=== PATIENT | male | born 1975 | race Hispanic/Latino ===

== ENCOUNTER 2018-11-05 16:23 | Emergency (ER) | payer BC, OTHER ==
[2018-11-05] MEDS ORDERED: IOHEXOL-350 75 ML VIAL IV ONE (17:09)
[2018-11-05 17:16] LABS: CREATININE 0.9 mg/dL (0.5-1.5); POTASSIUM 3.2 mmol/L (3.5-5.1)
[2018-11-05 17:19] LABS: BASOPHILS % (AUTO) 0.6 % (0.0-5.0); EOSINOPHILS % (AUTO) 0.6 % (0.0-8.0); LYMPHOCYTES % (AUTO) 23.6 % (21.0-51.0); MEAN CORPUSCULAR HEMOGLOBIN 31.6 pg (27.0-33.0); MEAN CORPUSCULAR HGB CONC 34.1 g/dL (32.0-36.0); MEAN CORPUSCULAR VOLUME 92.8 fL (79-99); MONOCYTES % (AUTO) 7.9 % (3.0-13.0); NEUTROPHILS % (AUTO) 67.3 % (40.0-77.0); PLATELET COUNT (AUTO) 376 K/uL (130-400); RED BLOOD CELL COUNT(AUTO) 4.95 MIL/uL (4.50-6.20); RED CELL DISTRIBUTION WIDTH 13.3 % (11.0-15.5); WHITE BLOOD COUNT (AUTO) 11.6 K/uL (4.8-10.8)
[2018-11-05 17:20] LABS: ALBUMIN 4.2 g/dL (3.5-5.0); BILIRUBIN,TOTAL 1.4 mg/dL (0.2-1.0); TOTAL PROTEIN, SERUM 8.5 g/dL (6.0-8.3)
[2018-11-05 17:24] LABS: PARTIAL THROMBOPLASTIN TIME 26.6 SEC (26.3-35.5); PROTHROMBIN TIME 10.5 SEC (9.6-11.6)
[2018-11-05] MEDS ORDERED: MECLIZINE HCL 25 MG TABLET ONE (22:15)
== END 2018-11-05 22:45 | disposition home or self-care (01) ==
LOC: EDH 16:23
DX: R51 Headache (principal); R42 Dizziness and giddiness; R11.0 Nausea; E11.9 Type 2 diabetes mellitus without complications; Z87.442 Personal history of urinary calculi; Z72.0 Tobacco use
CPT/HCPCS: 36415; 70450; 70496; 70498; 70540; 70551; 80053; 85025; 85610; 85730; 93005; 99285; Q9967

== ENCOUNTER 2018-11-14 14:34 | Emergency (ER) | payer OTHER ==
[2018-11-14 15:42] LABS: BASOPHILS % (AUTO) 0.9 % (0.0-5.0); EOSINOPHILS % (AUTO) 1.9 % (0.0-8.0); HEMATOCRIT 40.6 % (42-54); LYMPHOCYTES % (AUTO) 33.9 % (21.0-51.0); MEAN CORPUSCULAR HEMOGLOBIN 31.5 pg (27.0-33.0); MEAN CORPUSCULAR HGB CONC 33.9 g/dL (32.0-36.0); NEUTROPHILS % (AUTO) 56.3 % (40.0-77.0); PLATELET COUNT (AUTO) 321 K/uL (130-400); RED BLOOD CELL COUNT(AUTO) 4.37 MIL/uL (4.50-6.20); RED CELL DISTRIBUTION WIDTH 12.8 % (11.0-15.5); WHITE BLOOD COUNT (AUTO) 11.7 K/uL (4.8-10.8)
[2018-11-14 15:46] LABS: APPEARANCE,URINE Clear (CLEAR); BILIRUBIN,URINE Negative (NEGATIVE); COLOR,URINE Yellow (YELLOW); GLUCOSE, URINE (UA) Negative (NEGATIVE); KETONES,URINE Negative (NEGATIVE); LEUKOCYTE ESTERASE ,URINE Negative (NEGATIVE); NITRATE,URINE Negative (NEGATIVE); OCCULT BLOOD,URINE Negative (NEGATIVE); PH,URINE 5.5 (5.0-8.0); PROTEIN,URINE Negative (NEGATIVE)
[2018-11-14 15:58] LABS: INR 0.96 (0.85-1.15); PARTIAL THROMBOPLASTIN TIME 25.2 SEC (26.3-35.5); PROTHROMBIN TIME 10.1 SEC (9.6-11.6)
[2018-11-14 16:03] LABS: ALBUMIN 3.8 g/dL (3.5-5.0); BILIRUBIN,DIRECT 0.1 mg/dL (0.0-0.3); BILIRUBIN,TOTAL 0.4 mg/dL (0.2-1.0); CREATININE 0.7 mg/dL (0.5-1.5); POTASSIUM 3.4 mmol/L (3.5-5.1); TOTAL PROTEIN, SERUM 7.6 g/dL (6.0-8.3)
== END 2018-11-14 16:36 | disposition home or self-care (01) ==
LOC: EDH 14:34
DX: S70.12XA Contusion of left thigh, initial encounter (principal); R55 Syncope and collapse; Z87.442 Personal history of urinary calculi; Z72.0 Tobacco use; V69.49XA Driver of heavy transport vehicle injured in collision with other motor vehicles in traffic accident, initial encounter; Y93.89 Activity, other specified; Y92.89 Other specified places as the place of occurrence of the external cause; Y99.8 Other external cause status
CPT/HCPCS: 36415; 71045; 73552; 80048; 80076; 81003; 84484; 85025; 85610; 85730; 93005

== ENCOUNTER 2022-03-26 20:42 | Emergency (ER) | payer BC, OTHER ==
[~2022-03-26] VITALS: Ht 172.7 cm; Wt 103.9 kg
[2022-03-26 20:43] VITALS: BP 129/89
[2022-03-26] MEDS ORDERED: GENTAMICIN SULFATE 0.3% 5ML DROPS OU SCH (21:30)
[2022-03-26] MEDS ORDERED: GENTAMICIN SULFATE 0.3% 5ML DROPS ONE (21:41)
== END 2022-03-26 21:49 | disposition home or self-care (01) ==
LOC: EDH 20:42
DX: H10.9 Unspecified conjunctivitis (principal); Z88.5 Allergy status to narcotic agent

== ENCOUNTER 2022-12-01 04:52 | Emergency (ER) | payer BC ==
[~2022-12-01] VITALS: Ht 172.7 cm; Wt 97.1 kg
[2022-12-01 05:40] VITALS: BP 134/78
[2022-12-01] MEDS ORDERED: CYCLOBENZAPRINE HCL 10 MG TABLET PO ONE (06:00)
[2022-12-01] MEDS ORDERED: IBUPROFEN 800 MG TAB PO ONE (06:00)
[2022-12-01] MEDS ORDERED: MELO-106 PO (08:17)
[2022-12-01] MEDS ORDERED: CYCL10TA16 PO (08:17)
== END 2022-12-01 08:29 | disposition home or self-care (01) ==
LOC: EDH 04:52
DX: M62.838 Other muscle spasm (principal); M54.50 Low back pain, unspecified; M47.9 Spondylosis, unspecified; E11.9 Type 2 diabetes mellitus without complications
CPT/HCPCS: 72100; 72190; 73552